=== PATIENT | female | born 1995 | race African-American/Black ===

== ENCOUNTER 2019-02-03 17:14 | Inpatient (IN) ==
[2019-02-03] MEDS ORDERED: ONDANSETRON 4 MG/2 ML VIAL IV PRN (17:53)
[2019-02-03] MEDS ORDERED: miSOPROStoL 200 MCG TABLET VAG PRN (17:58)
[2019-02-03] MEDS ORDERED: TERBUTALINE 1 MG/1 ML VIAL SUBCUT PRN (17:58)
[2019-02-03] MEDS ORDERED: CARBOPROST TROMETHAMINE 250 MCG/ML AMP IM PRN (17:58)
[2019-02-03] MEDS ORDERED: BUTORPHANOL 2 MG/ML VIAL IV PRN (17:58)
[2019-02-03] MEDS ORDERED: LIDOCAINE 1% 50 ML VIAL MISC INJ ONE (17:58)
[2019-02-03 18:00] LABS: Apearance,Urine CLEAR (Clear); Bilirubin,Urine Negative (Negative); Blood, Urine Negative (Negative); Glucose,Urine (UA) Negative (Negative); Ketones,Urine Negative (Negative); Mucus,Urine Occasional /LPF (Occasional); Nitrite,Urine Negative (Negative); Protein,Urine Negative; RBC,Urine <1 /HPF (0-4); Squamous Epithelial Cell,Urine Occasional /HPF (0-10); Urine Color Straw (Yellow); Urine Specific Gravity 1.005 (1.001-1.035); Urine Urobilinogen < 2.0 EU/DL (0.2-1.0); WBC,Urine 2 /HPF (0-6)
[2019-02-03 18:34] LABS: Basophils % 0.2 % (0.0-0.8); Eosinophils % 0.4 % (0.00-10.9); Hematocrit 37.5 VOL% (35.7-47.0); Hemoglobin 11.8 GM/DL (12.0-16.0); Immature Granulocytes % 1.2 %; Immature Granulocytes Absolute 0.11 #; Lymphocytes % 20.7 % (21.3-54.2); Mean Corpuscular HGB Conc 31.5 GM/DL (32-36); Mean Corpuscular Volume 79.4 FL (87-102); Mean Platelet Volume 10.4 FL (9.6-12.0); Neutrophils % 68.5 % (38.7-73.9); Platelet Count 271 T/CUMM (130-400); Red Blood Count 4.72 MC/CUMM (3.8-5.5); Red Cell Distribution Width 14.8 % (9.3-17.3); White Blood Count 9.5 T/CUMM (4-12)
[2019-02-04] MEDS: LACTATED RINGERS 1,000 ML IV SCH ×3 (00:55→14:52)
[2019-02-04] MEDS: OXYTOCIN/LR 20 UNIT/1,000 ML BAG IV SCH ×2 (04:36→17:33)
[2019-02-04] MEDS ORDERED: NALOXONE 0.4 MG/ML VIAL IV PRN (07:46)
[2019-02-04] MEDS ORDERED: hydrOXYzine HCL 25 MG/1 ML VIAL IM PRN (07:46)
[2019-02-04] MEDS ORDERED: diphenhydrAMINE 50 MG/1 ML VIAL IV PRN ×2 (07:46)
[2019-02-04] MEDS ORDERED: FAMOTIDINE 20 MG/2 ML VIAL IV ONE (07:46)
[2019-02-04] MEDS ORDERED: CITRIC ACID/SODIUM CITRATE 30 ML UDCUP PO ONE (07:46)
[2019-02-04] MEDS ORDERED: ePHEDrine 50 MG/ML AMP IV PRN (07:46)
[2019-02-04] MEDS ORDERED: LACTATED RINGERS 1,000 ML IV ONE (07:46)
[2019-02-04] MEDS ORDERED: PROMETHAZINE 25 MG/1 ML VIAL IM ONE (07:46)
[2019-02-04] MEDS ORDERED: fentaNYL 2 MCG/ROPIV 0.2% EPID 100 ML EPIDURAL SCH (08:00)
[2019-02-04 12:13] LABS: Amorphous Crystals,Urine Occasional /HPF (Few); Apearance,Urine CLEAR (Clear); Bilirubin,Urine Negative (Negative); Blood, Urine Negative (Negative); Glucose,Urine (UA) Negative (Negative); Ketones,Urine 20 mg/dL (Negative); Nitrite,Urine Negative (Negative); Protein,Urine Negative; RBC,Urine <1 /HPF (0-4); Urine Color Straw (Yellow); Urine Specific Gravity 1.004 (1.001-1.035); Urine Urobilinogen < 2.0 EU/DL (0.2-1.0)
[2019-02-04] MEDS ORDERED: METHYLERGONOVINE 0.2 MG/1 ML AMP ONE (14:35)
[2019-02-04] MEDS ORDERED: TRANEXAMIC ACID 1,000 MG/10 ML VIAL ONE (14:35)
[2019-02-04] MEDS ORDERED: CARBOPROST TROMETHAMINE 250 MCG/ML AMP IM ONE (14:35)
[2019-02-04] MEDS ORDERED: miSOPROStoL 200 MCG TABLET ONE (14:35)
[2019-02-04] MEDS ORDERED: LIDOCAINE 1% 50 ML VIAL ONE (15:22)
[2019-02-04] MEDS ORDERED: LANOLIN 50% CREAM 0.3 OZ TUBE TOP PRN (19:56)
[2019-02-04] MEDS ORDERED: ONDANSETRON 4 MG/2 ML VIAL IV PRN (19:56)
[2019-02-04] MEDS ORDERED: HYDROCORTISONE 2.5% RECTAL CREAM 30 GM TUBE TOP PRN (19:56)
[2019-02-04] MEDS ORDERED: BENZOCAINE 20%/MENTHOL 0.5% SPRAY 56 GM CAN TOP PRN (19:56)
[2019-02-04] MEDS ORDERED: RHO(D) IMMUNE GLOBULIN 300 MCG SYRINGE IM ONE (19:56)
[2019-02-04] MEDS ORDERED: WITCH HAZEL PADS 100/JAR TOP PRN (19:56)
[2019-02-04] MEDS ORDERED: ACETAMINOPHEN 325 MG TABLET PO PRN (19:56)
[2019-02-04] MEDS ORDERED: IBUPROFEN 800 MG TABLET PO PRN (19:56)
[2019-02-04] MEDS ORDERED: BISACODYL 10 MG SUPP RECTAL PRN (19:56)
[2019-02-04] MEDS ORDERED: ACETAMINOPHEN/CODEINE 300-30 MG TABLET PO PRN (19:58)
[2019-02-05 05:45] LABS: Basophils % 0.3 % (0.0-0.8); Eosinophils % 0.3 % (0.00-10.9); Hematocrit 31.5 VOL% (35.7-47.0); Immature Granulocytes % 0.7 %; Lymphocytes # 2.3 10*3/uL (1.4-4.0); Lymphocytes % 16.1 % (21.3-54.2); Mean Corpuscular HGB Conc 31.7 GM/DL (32-36); Mean Corpuscular Volume 78.9 FL (87-102); Mean Platelet Volume 10.2 FL (9.6-12.0); Monocytes % 7.4 % (1.7-12.7); Neutrophils % 75.2 % (38.7-73.9); Platelet Count 222 T/CUMM (130-400); Red Blood Count 3.99 MC/CUMM (3.8-5.5); Red Cell Distribution Width 14.8 % (9.3-17.3); White Blood Count 14.5 T/CUMM (4-12)
[2019-02-05] MEDS: DOCUSATE SODIUM 100 MG CAPSULE PO SCH ×2 (17:47→21:20)
[2019-02-06 08:38] VITALS: BP 114/64
[2019-02-06] MEDS: DOCUSATE SODIUM 100 MG CAPSULE PO SCH (09:07)
== END 2019-02-06 13:05 | disposition home or self-care (01) | DRG 807 ==
LOC: N.LDOUT 17:14 → N.LD 17:18 → N.OB 02-04 21:22
PROVIDERS: ADMIT Obstetrics & Gynecology; ATTEND Obstetrics & Gynecology